=== PATIENT | female | born 1960 | race Caucasian/White ===

== ENCOUNTER 2024-09-13 07:42 | Day surgery (SDC) | payer SELFPAY ==
[~2024-09-13 07:42] MED LIST: Acetaminophen 1,000 MG in Premix Bag 1 BAG IV SCH; Albuterol 0.083% 2.5 MG/3 ML Neb Soln NEB PRN; Bupivacaine 0.25% 30 ML SDV ONE; HYDROmorphone 1 MG/ML Syringe IVPUSH PRN; Lidocaine 2% 5 ML SDV ONE; Metoclopramide 10 MG/2 ML SDV IVPUSH PRN; Morphine 10 MG/ML SDV ONE; Morphine 2 MG/ML SYRINGE IVPUSH PRN; Naloxone 0.4 MG/ML SDV IVPUSH PRN; Ondansetron 4 MG/2 ML SDV IVPUSH PRN; Ondansetron 4 MG/2 ML SDV ONE; Phenylephrine HCl In 0.9% NaCl 1 MG/10 ML Syringe IVPUSH PRN; Rocuronium Bromide 50 MG/5 ML Syringe ONE; Ropivacaine 0.5% 5 MG/ML 30 ML SDV ONE; Sugammadex Sodium 200 MG/2 ML VIAL IV ONE; ceFAZolin 2 GM in Sodium Chloride 0.9% 50 ML IV ONE; droPERidol 5 MG/2 ML SDV IVPUSH PRN; fentaNYL 100 MCG/2 ML SDV ONE; fentaNYL 50 MCG/ML SDV IVPUSH PRN; propofoL 100 ML ONE; propofoL 50 ML ONE
[2024-09-13] MEDS ORDERED: Scopalamine 1mg/3day Transdermal Patch TOP ONE (08:00)
[2024-09-13] MEDS: Lactated Ringers 1,000 ML IV SCH (08:15)
[2024-09-13] MEDS: Pregabalin 75 MG Cap PO SCH (08:16)
[2024-09-13] MEDS ORDERED: Magnesium Sulfate (4.06 MEQ/ML) 5 GM/10 ML SDV ONE (08:25)
[2024-09-13] MEDS ORDERED: Ketamine HCL/NACL, ISO-OSM 50 MG/5 ML Syringe ONE (08:25)
[2024-09-13] MEDS ORDERED: ceFAZolin 2 GM Vial ONE (08:26)
[2024-09-13] MEDS ORDERED: Dexamethasone 4 MG/ML 5 ML MDV ONE (08:27)
[2024-09-13] MEDS ORDERED: Phenylephrine HCl In 0.9% NaCl 1 MG/10 ML Syringe ONE (09:15)
[2024-09-13] MEDS ORDERED: Ketorolac 30 MG/ML SDV ONE (10:16)
[2024-09-13] MEDS ORDERED: Bupivacaine 0.25% 30 ML SDV ONE (11:02)
== END 2024-09-13 14:50 | disposition home or self-care (01) ==
LOC: MW.SDS 07:42 → EEVIPCON 07:42 → MW.SDS 14:50
PROVIDERS: ATTEND Surgery
DX: K80.10 Calculus of gallbladder with chronic cholecystitis without obstruction (principal); K21.9 Gastro-esophageal reflux disease without esophagitis; Z88.2 Allergy status to sulfonamides; Z79.899 Other long term (current) drug therapy
CPT/HCPCS: 47562; A9270; J0131; J0665; J0690; J1100; J1885; J2270; J2371; J2704; J2795; J3010; J3475; J3490; J7120; 00790; 64488; J2272; J2405